=== PATIENT | female | born 1980 | race Caucasian/White ===

== ENCOUNTER → 2018-05-11 | Outpatient (CLI) | payer OTHER ==
[~2018-05-11] MED LIST: CARAFATE 1 GM TA1 G1 PO; CIPRO500 MG PO; PROTONIX40 MG PO; ZOFRAN4 MG PO
== END ==
LOC: M.LAB 12:18
DX: N30.01 Acute cystitis with hematuria (principal)

== ENCOUNTER 2018-05-26 11:42 | Emergency (ER) | payer OTHER ==
[~2018-05-26] VITALS: Ht 172.7 cm; Wt 83.0 kg
[2018-05-26 11:58] LABS: URINE BILIRUBIN NEGATIVE (Negative); URINE BLOOD TRACE (Negative); URINE CLARITY CLEAR; URINE COLOR YELLOW; URINE GLUCOSE-RANDOM NEGATIVE (Negative); URINE KETONES NEGATIVE (Negative); URINE LEUKOCYTES-REFLEX 1+ (Negative); URINE NITRITE-REFLEX NEGATIVE (Negative); URINE PROTEIN NEGATIVE (Negative); URINE SPECIFIC GRAVITY >= 1.030 (1.005-1.030); URINE UROBILINOGEN 0.2 E.U./dl (0.2-1.0)
[2018-05-26] MEDS ORDERED: FLONASE 0.05%50 MCG NASAL (11:58)
[2018-05-26] MEDS ORDERED: SINGULAIR 10 MG10 M1 PO (11:58)
[2018-05-26] MEDS ORDERED: CETIRIZINE HCL5 MG PO (11:59)
[2018-05-26 12:18] LABS: BACTERIA-REFLEX 1-9 Few /HPF (None Seen); CASTS None Seen /LPF (None Seen); CRYSTALS None Seen /LPF (None Seen); MUCUS 4-6 Moderate strn/LPF (None Seen); SQUAMOUS 4-10 Moderate /LPF (0-3); URINE RBC 0-2 Rare /HPF (0-2); URINE WBC-REFLEX 0-5 Rare /HPF (0-5)
[2018-05-26 12:29] LABS: ABSOLUTE LYMPHOCYTES 2.3 thou/uL (0.8-5.3); ABSOLUTE MONOCYTES 0.5 thou/uL (0.0-1.2); ABSOLUTE NEUTROPHILS 4.4 thou/uL (1.6-8.1); BASOPHILS 0.7 %; EOSINOPHILS 0.6 %; HEMATOCRIT 37.6 % (37.0-47.0); HEMOGLOBIN 12.2 gm/dL (12.0-15.0); LYMPHOCYTES 31.5 %; MCH 26.8 pg (26.0-34.0); MCHC 32.5 g/dL (28.0-37.0); MCV 82.3 fL (80.0-100.0); MONOCYTES 6.6 %; MPV 7.5 fl. (7.2-11.1); NUCLEATED RBCS 0 /100WBC; PLATELET COUNT* 333 thou/uL (150-400); POLYS 60.6 %; RBC 4.57 mil/uL (4.20-5.00); RDW-CV 14.6 % (10.5-14.5); WBC 7.3 thou/uL (4.0-11.0)
[2018-05-26 12:37] LABS: CALCIUM 8.9 mg/dL (8.5-10.1); CREATININE 0.7 mg/dL (0.6-1.3); POTASSIUM 3.2 mmol/L (3.5-5.1)
[2018-05-26 12:42] LABS: ALBUMIN 3.9 g/dL (3.4-5.0); TOTAL BILIRUBIN 0.4 mg/dL (<0.1-1.0); TOTAL PROTEIN 7.5 g/dL (6.4-8.2)
[2018-05-26] MEDS ORDERED: FLAGYL500 M1 PO (15:14)
[2018-05-26] MEDS ORDERED: CIPRO500 MG PO (15:14)
[2018-05-26] MEDS ORDERED: ONDANSETRON HCL4 M2 PO (15:14)
[2018-05-26] MEDS ORDERED: NABUMETONE 750750 M1 PO (15:16)
[2018-05-26 15:45] VITALS: BP 138/69
== END 2018-05-26 15:46 | disposition home or self-care (01) ==
LOC: M.ERS 11:42
PROVIDERS: Nurse Practitioner Family
DX: K52.9 Noninfective gastroenteritis and colitis, unspecified (principal); N83.202 Unspecified ovarian cyst, left side; N83.201 Unspecified ovarian cyst, right side; N39.0 Urinary tract infection, site not specified

== ENCOUNTER 2019-01-05 09:56 | Emergency (ER) | payer OTHER ==
[~2019-01-05] VITALS: Ht 172.7 cm; Wt 82.1 kg
[~2019-01-05 09:56] MED LIST changes: +CETIRIZINE HCL5 MG PO; +FLAGYL500 M1 PO; +FLONASE 0.05%50 MCG NASAL; +NABUMETONE 750750 M1 PO; +ONDANSETRON HCL4 M2 PO; +SINGULAIR 10 MG10 M1 PO
[2019-01-05 10:42] LABS: URINE BILIRUBIN NEGATIVE (Negative); URINE BLOOD 1+ (Negative); URINE CLARITY CLEAR; URINE COLOR YELLOW; URINE GLUCOSE-RANDOM NEGATIVE (Negative); URINE KETONES NEGATIVE (Negative); URINE LEUKOCYTES-REFLEX TRACE (Negative); URINE NITRITE-REFLEX NEGATIVE (Negative); URINE PROTEIN NEGATIVE (Negative); URINE SPECIFIC GRAVITY 1.025 (1.005-1.030); URINE UROBILINOGEN 0.2 E.U./dl (0.2-1.0)
[2019-01-05 10:48] LABS: ABSOLUTE BASOPHILS 0.1 thou/uL (0.0-0.2); ABSOLUTE EOSINOPHILS 0.3 thou/uL (0.0-0.7); ABSOLUTE LYMPHOCYTES 2.3 thou/uL (0.8-5.3); ABSOLUTE MONOCYTES 0.5 thou/uL (0.0-1.2); ABSOLUTE NEUTROPHILS 3.8 thou/uL (1.6-8.1); BASOPHILS 1.1 %; EOSINOPHILS 3.9 %; HEMOGLOBIN 13.1 gm/dL (12.0-15.0); LYMPHOCYTES 33.4 %; MCH 27.4 pg (26.0-34.0); MCHC 32.7 g/dL (28.0-37.0); MCV 83.7 fL (80.0-100.0); MONOCYTES 7.5 %; MPV 7.6 fl. (7.2-11.1); NUCLEATED RBCS 0 /100WBC; PLATELET COUNT* 392 thou/uL (150-400); POLYS 54.1 %; RBC 4.78 mil/uL (4.20-5.00); RDW-CV 14.1 % (10.5-14.5)
[2019-01-05 10:50] LABS: BACTERIA-REFLEX 1-9 Few /HPF (None Seen); CASTS None Seen /LPF (None Seen); CRYSTALS None Seen /LPF (None Seen); MUCUS 0-3 Light strn/LPF (None Seen); SQUAMOUS 4-10 Moderate /LPF (0-3); URINE RBC 3-10 Few /HPF (0-2); URINE WBC-REFLEX 6-15 Few /HPF (0-5)
[2019-01-05 11:06] LABS: CALCIUM 9.1 mg/dL (8.5-10.1); CREATININE 0.7 mg/dL (0.6-1.3); POTASSIUM 4.2 mmol/L (3.5-5.1); TOTAL BILIRUBIN 0.4 mg/dL (<0.1-1.0); TOTAL PROTEIN 7.8 g/dL (6.4-8.2)
[2019-01-05] MEDS ORDERED: ACETAMINOPHEN-1 EAC1 PO (12:01)
[2019-01-05] MEDS ORDERED: BACTRIM DS TAB1 EACH PO (12:01)
[2019-01-05 12:11] VITALS: BP 120/88
== END 2019-01-05 12:13 | disposition home or self-care (01) ==
LOC: M.ERS 09:56
PROVIDERS: Physician Assistant
DX: N39.0 Urinary tract infection, site not specified (principal); N83.201 Unspecified ovarian cyst, right side; R19.7 Diarrhea, unspecified; Z88.1 Allergy status to other antibiotic agents; Z88.8 Allergy status to other drugs, medicaments and biological substances

== ENCOUNTER → 2019-11-03 | Outpatient (CLI) | payer OTHER ==
[~2019-11-03] MED LIST changes: +ACETAMINOPHEN-1 EAC1 PO; +BACTRIM DS TAB1 EACH PO
[2019-11-03 17:10] LABS: ALBUMIN 4.6 g/dL (3.4-5.0); CALCIUM 9.2 mg/dL (8.5-10.1); CREATININE 0.8 mg/dL (0.6-1.3); PHOSPHORUS* 3.9 mg/dL (2.5-4.9); POTASSIUM 3.6 mmol/L (3.5-5.1)
[2019-11-04 05:08] LABS: TESTOSTERONE 12 ng/dL (8-48)
[2019-11-07 19:07] LABS: FREE TESTOSTERONE 0.8 pg/mL (0.0-4.2)
== END ==
LOC: M.LAB 16:28
PROVIDERS: ATTEND Family Medicine
DX: R10.31 Right lower quadrant pain (principal)

== ENCOUNTER → 2020-02-08 | Outpatient (CLI) | payer OTHER ==
[2020-02-08 07:20] LABS: ABSOLUTE BASOPHILS 0.1 thou/uL (0.0-0.2); ABSOLUTE EOSINOPHILS 0.3 thou/uL (0.0-0.7); ABSOLUTE MONOCYTES 0.5 thou/uL (0.0-1.2); ABSOLUTE NEUTROPHILS 3.2 thou/uL (1.6-8.1); BASOPHILS 0.8 %; EOSINOPHILS 4.5 %; HEMATOCRIT 41.4 % (37.0-47.0); HEMOGLOBIN 14.1 gm/dL (12.0-15.0); MCH 29.1 pg (26.0-34.0); MCHC 34.2 g/dL (28.0-37.0); MCV 85.1 fL (80.0-100.0); MONOCYTES 7.4 %; MPV 7.5 fl. (7.2-11.1); NUCLEATED RBCS 0 /100WBC; PLATELET COUNT* 391 thou/uL (150-400); POLYS 45.3 %; RBC 4.86 mil/uL (4.20-5.00); RDW-CV 13.1 % (10.5-14.5); WBC 7.2 thou/uL (4.0-11.0)
[2020-02-08 07:49] LABS: ALKALINE PHOSPHATASE 83 U/L (46-116); ANION GAP 8 mmol/L (7-16); BUN 13 mg/dL (7-18); CALCIUM 8.8 mg/dL (8.5-10.1); CHLORIDE 104 mmol/L (98-107); CHOLESTEROL 174 mg/dL (<200); CO2 28 mmol/L (21-32); CREATININE 0.9 mg/dL (0.6-1.3); GLUCOSE 93 mg/dL (70-99); HDL CHOLESTEROL 49 mg/dL (>40); LDL CHOLESTEROL 112 mg/dL (<100); POTASSIUM 3.8 mmol/L (3.5-5.1); SGOT 18 U/L (15-37); SGPT 26 U/L (30-65); SODIUM 140 mmol/L (136-145); TC:HDL 3.6 Ratio (Not establshd); TOTAL BILIRUBIN 0.3 mg/dL (<0.1-1.0); TOTAL PROTEIN 7.7 g/dL (6.4-8.2); TRIGLYCERIDE 67 mg/dL (<150); VLDL 13 mg/dL (<40)
[2020-02-08 07:52] LABS: SERUM ASSESSMENT Clear
== END ==
LOC: M.LAB 06:57
PROVIDERS: ATTEND Nurse Practitioner Family
DX: R03.0 Elevated blood-pressure reading, without diagnosis of hypertension (principal); F41.9 Anxiety disorder, unspecified; R51 Headache

== ENCOUNTER 2020-04-18 18:17 | Emergency (ER) | payer OTHER ==
[~2020-04-18] VITALS: Ht 175.3 cm; Wt 81.2 kg
[~2020-04-18 18:17] MED LIST changes: -BLACK COHOSH40 MG PO; -CLIMARA1 EAC3 PO; -LORATIDINE 10 M10 M1 PO; -OMEPRAZOLE 20 M20 M1 PO; -VITAMIN D210 MCG PO
[2020-04-18 18:22] VITALS: BP 134/94
[2020-04-18] MEDS ORDERED: CLIMARA1 EAC3 PO (18:25)
[2020-04-18] MEDS ORDERED: BLACK COHOSH40 MG PO (18:25)
[2020-04-18] MEDS ORDERED: VITAMIN D210 MCG PO (18:26)
[2020-04-18] MEDS ORDERED: OMEPRAZOLE 20 M20 M1 PO (18:26)
[2020-04-18] MEDS ORDERED: LORATIDINE 10 M10 M1 PO (18:26)
== END 2020-04-18 20:03 | disposition home or self-care (01) ==
LOC: M.ERS 18:17
DX: R51.9 Headache, unspecified (principal); R06.02 Shortness of breath; Z20.828 Contact with and (suspected) exposure to other viral communicable diseases; Z79.899 Other long term (current) drug therapy; Z88.1 Allergy status to other antibiotic agents

== ENCOUNTER → 2020-04-18 | Outpatient (CLI) | payer OTHER ==
[~2020-04-18] MED LIST changes: +BLACK COHOSH40 MG PO; +CLIMARA1 EAC3 PO; +LORATIDINE 10 M10 M1 PO; +OMEPRAZOLE 20 M20 M1 PO; +VITAMIN D210 MCG PO
== END ==
LOC: M.LAB 13:14
PROVIDERS: ATTEND Obstetrics & Gynecology
DX: E89.40 Asymptomatic postprocedural ovarian failure (principal)

== ENCOUNTER → 2020-04-26 | Outpatient (CLI) | payer OTHER ==
[~2020-04-26] MED LIST changes: +BLACK COHOSH40 MG PO; +CLIMARA1 EAC3 PO; +LORATIDINE 10 M10 M1 PO; +OMEPRAZOLE 20 M20 M1 PO; +VITAMIN D210 MCG PO
== END ==
LOC: M.RAD 12:57
PROVIDERS: ATTEND Family Medicine
DX: Z12.31 Encounter for screening mammogram for malignant neoplasm of breast (principal)

== ENCOUNTER → 2020-04-30 | Outpatient (CLI) | payer OTHER | LOC: M.LAB 12:21 | PROVIDERS: ATTEND Nurse Practitioner Family | DX: E55.9 Vitamin D deficiency, unspecified (principal) ==

== ENCOUNTER 2020-06-01 12:09 | Emergency (ER) | payer OTHER ==
[~2020-06-01] VITALS: Ht 172.7 cm; Wt 80.7 kg
[2020-06-01 13:45] LABS: ABSOLUTE EOSINOPHILS 0.1 thou/uL (0.0-0.7); ABSOLUTE LYMPHOCYTES 2.5 thou/uL (0.8-5.3); ABSOLUTE MONOCYTES 0.5 thou/uL (0.0-1.2); ABSOLUTE NEUTROPHILS 3.1 thou/uL (1.6-8.1); BASOPHILS 0.7 %; EOSINOPHILS 1.1 %; HEMATOCRIT 40.1 % (37.0-47.0); HEMOGLOBIN 13.7 gm/dL (12.0-15.0); LYMPHOCYTES 40.6 %; MCHC 34.2 g/dL (28.0-37.0); MCV 84.8 fL (80.0-100.0); MONOCYTES 7.4 %; MPV 7.7 fl. (7.2-11.1); NUCLEATED RBCS 0 /100WBC; PLATELET COUNT* 308 thou/uL (150-400); POLYS 50.2 %; RBC 4.73 mil/uL (4.20-5.00); RDW-CV 12.5 % (10.5-14.5); WBC 6.2 thou/uL (4.0-11.0)
[2020-06-01 13:54] LABS: CALCIUM 9.6 mg/dL (8.5-10.1); CREATININE 0.8 mg/dL (0.6-1.3); POTASSIUM 3.5 mmol/L (3.5-5.1)
[2020-06-01 13:59] LABS: ALBUMIN 4.1 g/dL (3.4-5.0); TOTAL BILIRUBIN 0.4 mg/dL (<0.1-1.0); TOTAL PROTEIN 7.8 g/dL (6.4-8.2)
[2020-06-01] MEDS ORDERED: APAP W/CODEINE1 TA2 PO (15:31)
[2020-06-01 15:44] VITALS: BP 132/85
--- NOTE | 2020-06-04 10:00 | EKG ---
[place] [address] ELECTROCARDIOGRAM REPORT Name: LITO MILLER Room: [facility]#: [id number] Admission: 06/01/20 Attend Phys: Discharge: 06/01/20 Date of : 78 Date of Service: 06/01/20 1220 Report #: [id number] THIS REPORT FOR: //name// [facility] ED Test Date: 2020-06-01 Test Time: 12:20:02 Pat Name: LITO MILLER Department: Room: Gender: Architectural Draftsman: [facility] : 1980 Requested By: Darnell Lim Order Number: [id number] MD: Yousif Tracy Measurements Intervals Lloyd Rate: 91 P: 77 [place]: 156 QRS: 71 QRSD: 96 T: 26 QT: 357 QTc: 440 Interpretive Statements Sinus rhythm Compared to ECG 02/10/2015 16:14:14 No significant changes Electronically Signed On 06-04-2020 10:00:00 PRODUCTION LINE ASSEMBLER by Yousif Tracy [email or web address] <ELECTRONICALLY SIGNED> By: Yousif Tracy MD, [facility] 06/04/20 1000 122 19 Yousif Tracy MD, [facility] /EPI
== END 2020-06-01 15:49 | disposition home or self-care (01) ==
LOC: M.ERS 12:09
PROVIDERS: Physician Assistant
DX: R13.10 Dysphagia, unspecified (principal); Z20.828 Contact with and (suspected) exposure to other viral communicable diseases; Z88.1 Allergy status to other antibiotic agents; Z88.8 Allergy status to other drugs, medicaments and biological substances; Z90.710 Acquired absence of both cervix and uterus

== ENCOUNTER → 2020-06-08 | Outpatient (CLI) | payer OTHER ==
[~2020-06-08] MED LIST changes: +APAP W/CODEINE1 TA2 PO
== END ==
LOC: M.ULTRA 08:43
PROVIDERS: ATTEND Internal Medicine Gastroenterology
DX: R10.9 Unspecified abdominal pain (principal)

== ENCOUNTER → 2020-06-14 | Outpatient (CLI) | payer OTHER | LOC: M.LAB 07:17 | PROVIDERS: ATTEND Internal Medicine Gastroenterology | DX: Z01.812 Encounter for preprocedural laboratory examination (principal); Z11.59 Encounter for screening for other viral diseases ==

== ENCOUNTER → 2020-06-22 | Outpatient (CLI) | payer OTHER | LOC: M.ULTRA 07:46 | PROVIDERS: ATTEND Internal Medicine Gastroenterology | DX: E04.1 Nontoxic single thyroid nodule (principal) ==

== ENCOUNTER → 2020-07-04 | Outpatient (CLI) | payer OTHER ==
--- NOTE | 2020-07-06 10:07 | PATH ---
[address] [address] PATHOLOGY RPT PROCEDURE Name: LITO MILLER Room: [facility]#: [id number] Admission: 07/04/20 Date of : 78 Discharge: Report #: [id number] Path Case #: [id number] Note [facility] Accession Number: [id number] TESTS RESULT FLAG UNITS REF RANGE LAB Clinician Provided Cytology Information No. of containers..01 Other (Miscellaneous) Source: RIGHT THYROID DIAGNOSIS: RIGHT THYROID INCONCLUSIVE. BETHESDA CATEGORY III. FOLLICULAR LESION OF UNDETERMINED SIGNIFICANCE. SPECIMEN CONSISTS OF ABUNDANT FOLLICULAR CELLS WITH SCANT COLLOID. THE DIFFERENTIAL DIAGNOSIS INCLUDES CELLULAR ADENOMATOID NODULE AND FOLLICULAR NEOPLASM. RED BLOOD CELLS ARE PRESENT. THIS INTERPRETATION INCLUDES EVALUATION OF A CELL BLOCK. COMMENT, VERY CELLULAR ASPIRATE WITH THYROID FOLLICULAR CELLS IN SHEETS SOME WITH MICROFOLLICLES. THERE IS NUCLEAR CROWDING AND OVERLAPPING. NOT MUCH COLLOID OR MACROPHAGES PRESENT. SUGGEST RADIOLOGICAL AND CLINICAL CORRELATION. THE RETAIN VIAL WILL BE SENT FOR MOLECULAR TESTING. Pathologist ICD10: 02 R89.6 Signed out by: 02 Ptio Martinez MD, Pathologist NPI- [id number] Performed by: Mari Fritz, Desktop Support Engineer ([facility]) Gross description: 01 20ML, RED, 4FX, 4DQ /LCS 07/05/2020 0742 Local FLAG LEGEND: L-Low Normal,H-High Normal,LL-Alert Low,HH-Alert High <-Panic Low,>-Panic High,A-Abnormal,AA-Critical Abnormal Performed at: 01 [facility] [address] [place] [address] [address] [place] [address] Pito Martinez MD, 02 [facility] Lab[address] [address] Anneliese Flynn MD, Performed at: [address] [address] PATHOLOGY RPT PROCEDURE Name: LITO MILLER Room: [facility]#: [id number] Admission: 07/04/20 Date of : [birth year] Discharge: Report #: [id number] Path Case #: [id number] [facility] [place] [address] [place] [address] [address], [place], [place] [id number] MD Pito Martinez MD Phone: [phone]
== END | disposition home or self-care (01) ==
LOC: M.ULTRA 10:32
PROVIDERS: ATTEND Otolaryngology
DX: E04.1 Nontoxic single thyroid nodule (principal); F17.210 Nicotine dependence, cigarettes, uncomplicated; Z98.890 Other specified postprocedural states; Z90.710 Acquired absence of both cervix and uterus; Z88.8 Allergy status to other drugs, medicaments and biological substances

== ENCOUNTER 2020-09-03 10:56 | Observation (INO) | payer OTHER ==
[~2020-09-03] VITALS: Ht 172.7 cm; Wt 74.8 kg
--- NOTE | ~2020-09-03 | H ---
[facility] [address] [place] [address] HISTORY AND PHYSICAL Name: LITO MILLER Room: [address] Tawana Owens#: [id number] Admission: 09/03/20 Attend Phys: Milli Ahmadi Discharge: 09/03/20 Date of : 78 Report #: [id number] THIS REPORT FOR: cc: Sweetie Conklin NP, Elizabeth NP [facility],Medical Records Staff ~ For History and Physical please refer to the handwritten note in the patient's medical record by Dr. Rivas. By: 1304Medical Records Staff SILAS /TISHA
--- NOTE | ~2020-09-03 | OP ---
[facility] [address] [place] [address] OPERATIVE REPORT Name: LITO MILLER Room: [address] Tawana Owens#: [id number] Admission: 09/03/20 Attend Phys: Milli Amhadi Discharge: Date of : 78 Report #: [id number] THIS REPORT FOR: cc: Sweetie Conklin NP, Elizabeth NP [place], Mark O. MD ~ DATE OF SERVICE: 09/03/2020 PREOPERATIVE DIAGNOSIS: Multinodular goiter with suspicious nodules on molecular testing on the right. POSTOPERATIVE DIAGNOSIS: Multinodular goiter with suspicious nodules on molecular testing on the right. OPERATION PERFORMED: Total thyroidectomy. SURGEON: Hiren Rivas MD ANESTHESIA: General endotracheal with monitored endotracheal tube. INDICATIONS: This is a 40-year-old female with a history of multinodular goiter with suspicious nodules, FNA indicating atypia and molecular testing showing risk of 75-85% of thyroid cancer. The patient elected to have total thyroidectomy, so as to avoid further surgery and need for observation in the future. FINDINGS: Multinodular goiter, right greater than left. Normal recurrent laryngeal nerve bilaterally and normal superior and inferior parathyroid glands bilaterally with good blood supply. ESTIMATED BLOOD LOSS: 10 mL. COMPLICATIONS: None. IV FLUIDS: 1 liter. ITEMS SENT FOR PATH. Total thyroidectomy, long suture on the right superior lobe and short suture in the left and superior lobe. DETAILS OF PROCEDURE: After informed consent was obtained, the patient was brought to the operating room in a supine position on the OR table. General anesthetic by monitored endotracheal tube was administered. A shoulder roll was placed. The neck was extended and the anterior inferior neck was injected with 1% lidocaine with 1:100,000 epinephrine. The patient was then prepped and draped in [place] [address] OPERATIVE REPORT Name: LITO MILLER Room: [address] Tawana Owens#: [id number] Admission: 09/03/20 Attend Phys: Milli Ahmadi Discharge: Date of : 78 Report #: [id number] A 4.5 cm skin incision was made 4 cm above the clavicle and centered in the midline just inferior to a skin crease. Dissection continued through the subcutaneous tissue and platysma. The strap muscles were divided at the midline and retracted laterally. The right thyroid lobe was addressed first. It was retracted medially as the superior, middle and inferior thyroid vessels were ligated with bipolar electrocautery and the superior thyroid artery was treated with vascular clips. As the gland was rotated medially, the superior and inferior parathyroid glands were identified and preserved with a blood supply intact. The recurrent laryngeal nerve was identified. This was confirmed with the Prass probe. Once the parathyroid glands and recurrent laryngeal nerve were safely dissected away from the thyroid gland, the gland was then dissected away from the underlying airway. The left thyroid lobe was addressed in a similar manner with the gland rotated medially. The superior, middle and inferior thyroid vessels were ligated with bipolar electrocautery and vascular clamps for the superior thyroid artery. The superior and inferior parathyroid glands were identified and preserved with good blood supply and the recurrent laryngeal nerve was also identified and preserved. The thyroid gland was removed from the underlying trachea and sent to pathology for evaluation with sutures marking the superior pole bilaterally with the longer one on the right. The recurrent laryngeal nerves were then stimulated again to ensure easily stimulation at 0.5 milliamps. The wound was irrigated with saline bilaterally. Surgicel was placed over the thyroid bed bilaterally. The wound was then closed in layers reapproximated in the strap muscles, the platysma and deep dermal with absorbable sutures in addition Monocryl was used to help close the skin in subcuticular fashion as well as Dermabond. The patient was then returned Anesthesia, was awakened, extubated, and taken to recovery room in good condition without evidence of complication. By: 1431 [id number] Rivas MD /vera
[~2020-09-03 10:56] MED LIST changes: +B COMPLEX1 EACH PO; +CALCIUM500 MG; +OMEPRAZOLE40 MG PO
[2020-09-03] MEDS ORDERED: LEVOTHYROXINE125 MC1 PO ×2 (14:48)
--- NOTE | 2020-09-10 15:07 | PATH ---
[address] [address] PATHOLOGY RPT PROCEDURE Name: LITO LANCASTER Room: [address] Tawana Owens#: [id number] Admission: 09/03/20 Date of : 78 Discharge: 09/03/20 Report #: [id number] Path Case #: [id number] [facility] Accession Number: [id number] . 01 Material submitted: . thyroid gland - TOTAL THYROID, SHORT STITCH LEFT, LONG STITCH RIGHT . 01 Clinical history: . THYROID NODULE . 02 Diagnosis: Total thyroidectomy: - NON-INVASIVE FOLLICULAR THYROID NEOPLASM WITH PAPILLARY-LIKE NUCLEAR FEATURES FORMING A MASS MEASURING 2.5 X 2.1 X 2.0 CM, CONFINED TO RIGHT LOBE. - Benign parathyroid tissue from right inferior region and left mid region. See comment. (JANNETH:pit 09/07/2020) QTP 09/07/2020 1340 Local . 02 Comment: The neoplasm is well circumscribed and shows abundant papillary like nuclear features including chromatin clearing and longitudinal nuclear grooves without pseudoinclusions identified and without kory papilla formation. Benign parathyroid tissue is seen within the thyroid parenchyma just beneath the surface in A9 and A10 and may represent one entire gland bisected and is also seen within thyroid parenchyma near the surface in A15 through A17 possibly representing one gland trisected although it is not certain if this represents two separate parathyroid glands on the left side. A1 through A6 reviewed with Dr[address] Anneliese Flynn who agrees with the diagnosis. (JANNETH:[facility] 09/07/2020) . 02 Electronically signed: . Robby Marinelli MD, Pathologist NPI- [id number] . 01 Gross description: . Received in formalin and labeled "Lito Lancaster and Total Thyroid (short stitch left, long stitch right)". Received is a suture oriented total thyroid. The right lobe measures 4.3 x 3.2 x 2.6 cm, the isthmus measures 1.8 x 1.0 x 0.4 cm. The left lobe measures 3.2 x 2.3 x 2.0 cm. The total weight is 15 g. The specimen is inked as follows: Right lobe (long suture-blue), left lobe (short suture-green), isthmus (orange), and deep (black). The specimen is sectioned in the anterior/posterior, superior to inferior plane. Sectioning of the right lobe reveals beefy red-brown parenchyma with a well-defined mottled pink-yi nodular lesion measuring 2.5 x 2.1 x 2.0 cm (A1 through A6) and 2 focal firm [place] [address] PATHOLOGY RPT PROCEDURE Name: LITO LANCASTER Room: [address] Tawana M.R.#: [id number] Admission: 09/03/20 Date of : 78 Discharge: 09/03/20 Report #: [id number] Path Case #: [id number] lesions (A9 and A10) that extends within 0.1 cm of the blue inked margin. Sectioning of the isthmus reveals beefy red-brown parenchyma with no grossly apparent lesions. Sectioning of the left lobe reveals beefy red-brown parenchyma with no grossly apparent lesions. The specimen is entirely submitted in cassettes A1 through A18. Block Nicole: A1 thru A10 - Right thyroid lobe (lesions in A1 thru A6 and A9 and A10) submitted sequentially from superior to inferior A11 thru A12 - Isthmus A13 through A18 - Left thyroid lobe, submitted sequentially from superior to inferior (BLJ; 09/06/2020) BLJ/BLJ 09/10/2020 1436 Local . 02 Pathologist provided ICD-10: C73 . 02 CPT . 504278 Specimen Comment: A courtesy copy of this report has been sent to [phone] Specimen Comment: [phone], Specimen Comment: Report sent to ,DR MARKHAM / DR PENA Performed at: 01 [facility] [address], [place] [id number] MD Pito Martinez MD Phone: [phone] Performed at: [address] [facility] [address], [place], [place] [address] MD Robby Marinelli MD Phone: [phone]
== END 2020-09-03 17:30 | disposition home or self-care (01) ==
LOC: M.TBA 10:56 → M.PRE 12:15 → M.TBA 17:30
PROVIDERS: ADMIT Internal Medicine; ATTEND Internal Medicine
DX: E04.2 Nontoxic multinodular goiter (principal); Z20.822 Contact with and (suspected) exposure to COVID-19; Z79.899 Other long term (current) drug therapy; Z88.1 Allergy status to other antibiotic agents; Z88.8 Allergy status to other drugs, medicaments and biological substances; Z91.018 Allergy to other foods

== ENCOUNTER 2020-09-06 00:30 | Observation (INO) | payer OTHER ==
[~2020-09-06] VITALS: Ht 172.7 cm; Wt 75.3 kg
[2020-09-06] VITALS (7 sets, daily range): BP systolic 102–134; BP diastolic 7–87
[~2020-09-06 00:30] MED LIST changes: +LEVOTHYROXINE125 MC1 PO
[2020-09-06 01:46] LABS: ABSOLUTE EOSINOPHILS 0.3 thou/uL (0.0-0.7); ABSOLUTE LYMPHOCYTES 3.6 thou/uL (0.8-5.3); ABSOLUTE MONOCYTES 0.7 thou/uL (0.0-1.2); ABSOLUTE NEUTROPHILS 4.1 thou/uL (1.6-8.1); BASOPHILS 0.5 %; EOSINOPHILS 3.1 %; HEMATOCRIT 38.1 % (37.0-47.0); HEMOGLOBIN 12.6 gm/dL (12.0-15.0); LYMPHOCYTES 40.7 %; MCH 28.4 pg (26.0-34.0); MCHC 33.1 g/dL (28.0-37.0); MONOCYTES 8.3 %; MPV 8.3 fl. (7.2-11.1); NUCLEATED RBCS 0 /100WBC; PLATELET COUNT* 281 thou/uL (150-400); POLYS 47.4 %; RBC 4.43 mil/uL (4.20-5.00); RDW-CV 12.8 % (10.5-14.5); WBC 8.7 thou/uL (4.0-11.0)
[2020-09-06 02:05] LABS: CALCIUM 7.3 mg/dL (8.5-10.1); CREATININE 0.9 mg/dL (0.6-1.3); POTASSIUM 3.4 mmol/L (3.5-5.1)
[2020-09-06 02:11] LABS: ALBUMIN 3.7 g/dL (3.4-5.0); MAGNESIUM 1.7 mg/dL (1.8-2.4); PHOSPHORUS* 4.5 mg/dL (2.5-4.9); TOTAL BILIRUBIN 0.4 mg/dL (<0.1-1.0); TOTAL PROTEIN 7.5 g/dL (6.4-8.2)
[2020-09-06 03:52] LABS: CALCIUM 7.6 mg/dL (8.5-10.1); CREATININE 0.9 mg/dL (0.6-1.3); PHOSPHORUS* 4.7 mg/dL (2.5-4.9)
[2020-09-06] MEDS ORDERED: VITAMIN D350 MC3 PO (05:40)
[2020-09-06] MEDS ORDERED: TIROSINT125 MCG PO (07:58)
--- NOTE | 2020-09-06 10:29 | EKG ---
[place] [address] ELECTROCARDIOGRAM REPORT Name: ANGELALITO Room: [address]R.#: [id number] Admission: 09/06/20 Attend Phys: Alejandro Gamino, Discharge: Date of : 78 Date of Service: 09/06/20 0256 Report #: [id number] THIS REPORT FOR: //name// [facility] ED Test Date: 2020-09-06 Test Time: 02:56:38 Pat Name: LITO MILLER Department: Room: [facility] Gender: F Case Resolution Specialist: TEMI : 1980 Requested By: Aliyah Davidson Order Number: [id number] MD: Miko Solorzano Measurements Intervals Carpenter Rate: 62 P: 80 [place]: 167 QRS: 70 QRSD: 96 T: 45 QT: 449 QTc: 456 Interpretive Statements Sinus rhythm Left atrial enlargement Compared to ECG 06/01/2020 12:20:02 Atrial abnormality now present Electronically Signed On 09-06-2020 10:29:41 CDT by Miko Solorzano [email or web address] <ELECTRONICALLY SIGNED> By: Miko Solorzano MD, [facility] 09/06/20 1029 0256 0256 Miko Solorzano MD, [facility] /EPI
[2020-09-06 11:31] LABS: ALBUMIN 3.6 g/dL (3.4-5.0); CALCIUM 7.5 mg/dL (8.5-10.1); DIRECT BILIRUBIN 0.1 mg/dL (<0.1-0.3); MAGNESIUM 2.2 mg/dL (1.8-2.4); PHOSPHORUS* 4.8 mg/dL (2.5-4.9); TOTAL BILIRUBIN 0.4 mg/dL (<0.1-1.0); TOTAL PROTEIN 7.2 g/dL (6.4-8.2)
[2020-09-06 19:46] LABS: CALCIUM 7.5 mg/dL (8.5-10.1); POTASSIUM 3.2 mmol/L (3.5-5.1)
[2020-09-07] VITALS: BP 110/68
[2020-09-07 04:00] VITALS: BP 113/74
[2020-09-07 06:48] LABS: CALCIUM 7.2 mg/dL (8.5-10.1)
[2020-09-07 06:52] LABS: POTASSIUM 4.5 mmol/L (3.5-5.1)
[2020-09-07 08:00] VITALS: BP 139/80
[2020-09-07 11:29] VITALS: BP 139/80
[2020-09-07 11:55] LABS: CALCIUM 7.8 mg/dL (8.5-10.1); CREATININE 0.7 mg/dL (0.6-1.3)
[2020-09-07 12:58] LABS: MAGNESIUM 1.9 mg/dL (1.8-2.4)
[2020-09-07 13:45] VITALS: BP 139/80
== END 2020-09-07 13:55 | disposition home or self-care (01) ==
LOC: M.ERS 00:30 → M.TBA-ER 03:25 → M.2W 03:25
PROVIDERS: Internal Medicine; Personal Emergency Response Attendant; ADMIT Internal Medicine; ATTEND Internal Medicine
DX: E83.51 Hypocalcemia (principal); Z20.822 Contact with and (suspected) exposure to COVID-19; K21.9 Gastro-esophageal reflux disease without esophagitis; Z79.899 Other long term (current) drug therapy; Z90.09 Acquired absence of other part of head and neck

== ENCOUNTER → 2020-09-10 | Outpatient (CLI) | payer OTHER ==
[~2020-09-10] MED LIST changes: +TIROSINT125 MCG PO; +VITAMIN D350 MC3 PO
[2020-09-10 10:07] LABS: CALCIUM 9.3 mg/dL (8.5-10.1); CREATININE 0.8 mg/dL (0.6-1.3); POTASSIUM 3.8 mmol/L (3.5-5.1)
== END ==
LOC: M.LAB 09:36
PROVIDERS: Nurse Practitioner Family; ATTEND Otolaryngology
DX: E83.51 Hypocalcemia (principal)

== ENCOUNTER → 2020-09-25 | Outpatient (CLI) | payer OTHER ==
[2020-09-25 12:36] LABS: ALBUMIN 4.2 g/dL (3.4-5.0); CREATININE 0.7 mg/dL (0.6-1.3); POTASSIUM 3.6 mmol/L (3.5-5.1); TOTAL BILIRUBIN 0.5 mg/dL (<0.1-1.0); TOTAL PROTEIN 8.3 g/dL (6.4-8.2)
== END ==
LOC: M.LAB 12:01
PROVIDERS: ATTEND Nurse Practitioner Family
DX: E83.51 Hypocalcemia (principal)

== ENCOUNTER → 2020-10-03 | Outpatient (CLI) | payer OTHER ==
[2020-10-03 12:17] LABS: CALCIUM 9.2 mg/dL (8.5-10.1); CREATININE 0.6 mg/dL (0.6-1.3); POTASSIUM 4.1 mmol/L (3.5-5.1)
== END ==
LOC: M.LAB 11:51
PROVIDERS: ATTEND Nurse Practitioner Family
DX: E55.9 Vitamin D deficiency, unspecified (principal); E87.8 Other disorders of electrolyte and fluid balance, not elsewhere classified; E89.0 Postprocedural hypothyroidism

== ENCOUNTER → 2020-10-31 | Outpatient (CLI) | payer OTHER ==
[2020-10-31 09:32] LABS: CALCIUM 9.4 mg/dL (8.5-10.1); CREATININE 0.7 mg/dL (0.6-1.3); POTASSIUM 3.9 mmol/L (3.5-5.1)
== END ==
LOC: M.LAB 09:06
PROVIDERS: ATTEND Nurse Practitioner Family
DX: E83.51 Hypocalcemia (principal)

== ENCOUNTER → 2020-12-10 | Outpatient (CLI) | payer OTHER | LOC: M.LAB 07:41 | DX: E20.9 Hypoparathyroidism, unspecified (principal); E03.9 Hypothyroidism, unspecified ==

== ENCOUNTER → 2020-12-28 | Outpatient (CLI) | payer OTHER ==
[2020-12-28 15:47] LABS: CREATININE 0.9 mg/dL (0.6-1.3); MAGNESIUM 2.2 mg/dL (1.8-2.4); POTASSIUM 3.7 mmol/L (3.5-5.1)
== END ==
LOC: M.LAB 15:17
PROVIDERS: ATTEND Nurse Practitioner Family
DX: E83.51 Hypocalcemia (principal); E89.0 Postprocedural hypothyroidism

== ENCOUNTER → 2021-01-08 | Outpatient (CLI) | payer OTHER ==
[~2021-01-08] MED LIST changes: +IBUPROFEN 800800 M1 PO; +VENTOLIN HFA 1818 GM INH; +ZANAFLEX4 MG PO
== END ==
LOC: M.ULTRA 13:00
PROVIDERS: ATTEND Internal Medicine Endocrinology, Diabetes & Metabolism
DX: C73 Malignant neoplasm of thyroid gland (principal); E89.0 Postprocedural hypothyroidism

== ENCOUNTER 2021-01-09 12:14 | Emergency (ER) | payer OTHER ==
[~2021-01-09] VITALS: Ht 172.7 cm; Wt 72.1 kg
[~2021-01-09 12:14] MED LIST changes: -IBUPROFEN 800800 M1 PO; -VENTOLIN HFA 1818 GM INH; -ZANAFLEX4 MG PO
--- NOTE | 2021-01-09 13:13 | EKG ---
[place] [address] ELECTROCARDIOGRAM REPORT Name: LITO MILLER Room: [facility]#: [id number] Admission: 01/09/21 Attend Phys: Discharge: Date of : 78 Date of Service: 01/09/21 1219 Report #: [id number] THIS REPORT FOR: //name// [facility] ED Test Date: 2021-01-09 Test Time: 12:19:16 Pat Name: LITO MILLER Department: Room: Gender: Executive Staff Assistant: [facility] : 1980 Requested By: Abeba Richards Order Number: [id number] MD: Miko Solorzano Measurements Intervals [place] Rate: 76 P: 73 [place]: 150 QRS: 65 QRSD: 91 T: 43 QT: 367 QTc: 413 Interpretive Statements Sinus rhythm Left atrial enlargement Compared to ECG 09/06/2020 02:56:38 No significant changes Electronically Signed On 01-09-2021 13:13:02 CDT by Miko Solorzano [email or web address] <ELECTRONICALLY SIGNED> By: Miko Solorzano MD, [facility] 01/09/21 1313 1219 121 Miko Solorzano MD, [facility] /EPI
[2021-01-09 15:03] LABS: ABSOLUTE BASOPHILS 0.1 thou/uL (0.0-0.2); ABSOLUTE EOSINOPHILS 0.1 thou/uL (0.0-0.7); ABSOLUTE MONOCYTES 0.4 thou/uL (0.0-1.2); ABSOLUTE NEUTROPHILS 3.6 thou/uL (1.6-8.1); BASOPHILS 0.9 %; EOSINOPHILS 1.1 %; HEMATOCRIT 42.6 % (37.0-47.0); HEMOGLOBIN 13.8 gm/dL (12.0-15.0); MCH 27.7 pg (26.0-34.0); MCHC 32.4 g/dL (28.0-37.0); MCV 85.7 fL (80.0-100.0); MONOCYTES 5.6 %; MPV 7.9 fl. (7.2-11.1); NUCLEATED RBCS 0 /100WBC; PLATELET COUNT* 299 thou/uL (150-400); POLYS 50.4 %; RBC 4.97 mil/uL (4.20-5.00); RDW-CV 13.2 % (10.5-14.5); WBC 7.1 thou/uL (4.0-11.0)
[2021-01-09 15:11] LABS: CALCIUM 8.9 mg/dL (8.5-10.1); CREATININE 0.8 mg/dL (0.6-1.3); POTASSIUM 3.9 mmol/L (3.5-5.1)
[2021-01-09 15:22] LABS: ALBUMIN 4.5 g/dL (3.4-5.0); MAGNESIUM 2.1 mg/dL (1.8-2.4); TOTAL BILIRUBIN 0.4 mg/dL (<0.1-1.0); TOTAL PROTEIN 7.9 g/dL (6.4-8.2)
[2021-01-09] MEDS ORDERED: VENTOLIN HFA 1818 GM INH (18:23)
[2021-01-09] MEDS ORDERED: IBUPROFEN 800800 M1 PO (18:23)
[2021-01-09] MEDS ORDERED: ZANAFLEX4 MG PO (18:23)
[2021-01-09 18:55] VITALS: BP 112/77
== END 2021-01-09 18:55 | disposition home or self-care (01) ==
LOC: M.ERS 12:14
PROVIDERS: Nurse Practitioner Family
DX: R07.89 Other chest pain (principal); Z20.822 Contact with and (suspected) exposure to COVID-19; R06.00 Dyspnea, unspecified; Z90.710 Acquired absence of both cervix and uterus; Z90.89 Acquired absence of other organs; Z79.899 Other long term (current) drug therapy; Z88.6 Allergy status to analgesic agent; Z88.1 Allergy status to other antibiotic agents; Z91.02 Food additives allergy status

== ENCOUNTER → 2021-02-13 | Outpatient (CLI) | payer OTHER ==
[~2021-02-13] MED LIST changes: +IBUPROFEN 800800 M1 PO; +VENTOLIN HFA 1818 GM INH; +ZANAFLEX4 MG PO
[2021-02-13 09:56] LABS: ABSOLUTE EOSINOPHILS 0.1 thou/uL (0.0-0.7); ABSOLUTE LYMPHOCYTES 2.1 thou/uL (0.8-5.3); ABSOLUTE MONOCYTES 0.4 thou/uL (0.0-1.2); ABSOLUTE NEUTROPHILS 3.4 thou/uL (1.6-8.1); BASOPHILS 0.5 %; EOSINOPHILS 2.2 %; HEMATOCRIT 42.5 % (37.0-47.0); HEMOGLOBIN 14.1 gm/dL (12.0-15.0); LYMPHOCYTES 35.2 %; MCH 28.1 pg (26.0-34.0); MCHC 33.2 g/dL (28.0-37.0); MCV 84.5 fL (80.0-100.0); MONOCYTES 6.4 %; MPV 7.7 fl. (7.2-11.1); NUCLEATED RBCS 0 /100WBC; PLATELET COUNT* 302 thou/uL (150-400); POLYS 55.7 %; RBC 5.03 mil/uL (4.20-5.00); RDW-CV 13.1 % (10.5-14.5); WBC 6.1 thou/uL (4.0-11.0)
[2021-02-13 10:10] LABS: ALBUMIN 4.7 g/dL (3.4-5.0); ALKALINE PHOSPHATASE 90 U/L (46-116); ANION GAP 12 mmol/L (7-16); BUN 12 mg/dL (7-18); CALCIUM 9.2 mg/dL (8.5-10.1); CHLORIDE 99 mmol/L (98-107); CHOLESTEROL 226 mg/dL (<200); CO2 26 mmol/L (21-32); CREATININE 0.9 mg/dL (0.6-1.3); GLUCOSE 90 mg/dL (70-99); HDL CHOLESTEROL 75 mg/dL (>40); LDL CHOLESTEROL 139 mg/dL (<100); MAGNESIUM 2.1 mg/dL (1.8-2.4); POTASSIUM 3.7 mmol/L (3.5-5.1); SERUM ASSESSMENT Clear; SGOT 25 U/L (15-37); SGPT 41 U/L (30-65); SODIUM 137 mmol/L (136-145); TOTAL BILIRUBIN 0.5 mg/dL (<0.1-1.0); TOTAL PROTEIN 8.6 g/dL (6.4-8.2); TRIGLYCERIDE 63 mg/dL (<150); VLDL 13 mg/dL (<40)
== END ==
LOC: M.LAB 09:19
PROVIDERS: ATTEND Internal Medicine Endocrinology, Diabetes & Metabolism
DX: Z13.220 Encounter for screening for lipoid disorders (principal); E89.0 Postprocedural hypothyroidism; E83.51 Hypocalcemia

== ENCOUNTER → 2021-03-27 | Outpatient (CLI) | payer OTHER ==
[2021-03-27 14:56] LABS: URINE BILIRUBIN NEGATIVE (Negative); URINE BLOOD TRACE (Negative); URINE CLARITY CLEAR; URINE COLOR YELLOW; URINE GLUCOSE-RANDOM NEGATIVE (Negative); URINE KETONES NEGATIVE (Negative); URINE LEUKOCYTES-REFLEX NEGATIVE (Negative); URINE NITRITE-REFLEX NEGATIVE (Negative); URINE PROTEIN NEGATIVE (Negative); URINE SPECIFIC GRAVITY <= 1.005 (1.005-1.030); URINE UROBILINOGEN 0.2 E.U./dl (0.2-1.0)
== END ==
LOC: M.LAB 14:24
PROVIDERS: ATTEND Internal Medicine Cardiovascular Disease
DX: N30.00 Acute cystitis without hematuria (principal)

== ENCOUNTER → 2021-06-21 | Outpatient (CLI) | payer OTHER ==
[2021-06-21 08:40] LABS: ALBUMIN 4.4 g/dL (3.4-5.0); CALCIUM 9.1 mg/dL (8.5-10.1); CREATININE 0.8 mg/dL (0.6-1.3); POTASSIUM 4.2 mmol/L (3.5-5.1); TOTAL BILIRUBIN 0.6 mg/dL (<0.1-1.0); TOTAL PROTEIN 7.7 g/dL (6.4-8.2)
== END ==
LOC: M.LAB 07:25
PROVIDERS: ATTEND Otolaryngology
DX: E83.51 Hypocalcemia (principal)